=== PATIENT | male | born 1960 | race Caucasian/White ===

== ENCOUNTER → 2017-02-01 | Day surgery (SDC) | payer OTHER ==
[~2017-02-01] MED LIST: ASPI81 PO; FISHOIL XX; LACTATED RINGER'S 1000 ML INJ 1,000 ML ONE; LISI10TA PO; PROPOFOL 500 MG/50 ML BTL IV ONE; TRIL135C PO; VENL100T PO; VITA250L PO; VITA400C28 PO
--- NOTE | 2017-02-01 09:52 | GIPROC ---
[facility] [address] [facility], [id number] COLONOSCOPY PROCEDURE REPORT EXAM DATE: 02/01/2017 PATIENT NAME: Gerardo Henry MR #: [id number] BIRTHDATE: 1960 ENDOSCOPIST: Stephanie Cassidy MD ORDER #: [id number] REGISTERED ASSOCIATE: STATUS: outpatient INDICATIONS: The patient is a 56 yr old male here for a colonoscopy due to history of polyps, denies family history of colon cancer PROCEDURE PERFORMED: Colonoscopy with polypectomy MEDICATIONS: None and Per Anesthesia. PREP QUALITY: fair PREP TYPE:GoLytely ESTIMATED BLOOD LOSS: None CONSENT: The patient understands the risks and benefits of the procedure and understands that these risks include, but are not limited to: sedation, allergic reaction, infection, perforation and/or bleeding. Alternative means of evaluation and treatment include, among others: physical exam, x-rays, and/or surgical intervention. The patient elects to proceed with this endoscopic procedure. medical equipment was checked for proper function. Hand hygiene and appropriate measures for infection prevention was taken. After the risks, benefits and alternatives of the procedure were thoroughly explained, Informed consent was verified, confirmed and timeout was successfully executed by the treatment team. A digital exam revealed external hemorrhoids The EC-[id number] ([id number]) endoscope was introduced through the anus and advanced to the cecum, which was identified by both the appendix and ileocecal valve. The instrument was then slowly withdrawn as the colon was fully examined. COLON FINDINGS: Diverticulosis sigmoid,descending two sessile polyps at heaptic flexure-5 mm each hot snare polypectomy with complete removal polyp sessile descending colon 1 cm-hot snare polypectomy with complete removal. Retroflexed views revealed internal hemorrhoids and Retroflexed views revealed small internal hemorrhoids The scope was then completely withdrawn from the patient and the procedure terminated. PROCEDURE WITHDRAWAL TIME:10minutes ADVERSE EVENTS: There were no complications. IMPRESSIONS: 1. Diverticulosis sigmoid,descending two sessile polyps at heaptic flexure-5 mm each hot snare polypectomy with complete removal polyp sessile descending colon 1 cm-hot snare polypectomy with complete removal 2. Retroflexed views revealed internal hemorrhoids 3. Retroflexed views revealed small internal hemorrhoids 4. Revealed external hemorrhoids RECOMMENDATIONS: 1. Await biopsy results. Biopsy results will not be ready for 7-10 days. If you don't hear from us in two weeks, call our office for results. 2. Benefiber 2 tsp daily 3. High fiber diet 4. Avoid NSAIDS and Aspirin 5. Probiotics from any [facility] or health food store 6. Yearly rectal exams RECALL: Colonoscopy, pending biopsy results Stephanie Cassidy MD eSigned: Stephanie Cassidy MD 02/01/2017 9:52 AM cc: Stacie Ugalde [facility] PATIENT NAME: Gerardo Henry MR#: [id number]
== END | disposition home or self-care (01) ==
LOC: ESDC 07:54
PROVIDERS: ATTEND Internal Medicine Gastroenterology
DX: Z12.11 Encounter for screening for malignant neoplasm of colon (principal); Z86.010 Personal history of colon polyps; K57.90 Diverticulosis of intestine, part unspecified, without perforation or abscess without bleeding; D12.3 Benign neoplasm of transverse colon; K64.8 Other hemorrhoids; K64.4 Residual hemorrhoidal skin tags; D12.4 Benign neoplasm of descending colon
CPT/HCPCS: 00810; 45385; 88305; J7120